=== PATIENT | female | born 1935 | race Two or more races ===

== ENCOUNTER 2020-05-24 09:43 | Outpatient (CLI) | payer OTHER | END 2020-05-24 09:44 | disposition home or self-care (01) | LOC: SONOGRAMA 09:43 | PROVIDERS: ATTEND Pathology Anatomic Pathology & Clinical Pathology | DX: E04.1 Nontoxic single thyroid nodule (principal) ==

== ENCOUNTER 2021-05-06 08:00 | Outpatient (CLI) | payer OTHER | END 2021-05-06 08:30 | disposition home or self-care (01) | LOC: PPH VACUNA 08:00 | DX: Z23 Encounter for immunization (principal) ==